=== PATIENT | male | born 1960 | race Caucasian/White ===

== ENCOUNTER 2021-04-21 06:45 | Outpatient (CLI) | payer BC | END 2021-04-21 06:46 | disposition home or self-care (01) | LOC: BICULT 06:45 | PROVIDERS: ATTEND Internal Medicine Gastroenterology | DX: K74.60 Unspecified cirrhosis of liver (principal) | CPT/HCPCS: 76705 ==

== ENCOUNTER 2022-07-26 07:20 | Outpatient (CLI) | payer BC | END 2022-07-26 07:21 | disposition home or self-care (01) | LOC: BICULT 07:20 | PROVIDERS: ATTEND Internal Medicine Gastroenterology | DX: K74.60 Unspecified cirrhosis of liver (principal) | CPT/HCPCS: 76705 ==

== ENCOUNTER 2022-11-16 09:06 | Outpatient (CLI) | payer BC | END 2022-11-16 09:07 | disposition home or self-care (01) | LOC: BICRAD 09:06 | PROVIDERS: ATTEND Nurse Practitioner Family | DX: M79.671 Pain in right foot (principal); M77.51 Other enthesopathy of right foot and ankle; M79.5 Residual foreign body in soft tissue ==

== ENCOUNTER 2023-05-17 12:09 | Outpatient (CLI) | payer BC | END 2023-05-17 12:10 | disposition home or self-care (01) | LOC: RAD 12:09 | PROVIDERS: ATTEND Nurse Practitioner Family | DX: M79.641 Pain in right hand (principal); M79.89 Other specified soft tissue disorders; M25.841 Other specified joint disorders, right hand; M25.741 Osteophyte, right hand; M18.11 Unilateral primary osteoarthritis of first carpometacarpal joint, right hand ==

== ENCOUNTER 2023-06-19 08:42 | Outpatient (CLI) | payer BC | END 2023-06-19 08:43 | disposition home or self-care (01) | LOC: BICMRI 08:42 | PROVIDERS: ATTEND Orthopaedic Surgery | DX: M75.121 Complete rotator cuff tear or rupture of right shoulder, not specified as traumatic (principal); S46.111A Strain of muscle, fascia and tendon of long head of biceps, right arm, initial encounter; S43.431A Superior glenoid labrum lesion of right shoulder, initial encounter; M75.81 Other shoulder lesions, right shoulder ==

== ENCOUNTER 2023-07-17 11:27 | Outpatient (CLI) | payer BC ==
[2023-07-17 10:51] LABS: #Eosinphils 0.3 10x3/uL (0.0-0.5); #Monocytes 0.5 10x3/uL (0.0-1.1); #Neutrophils 3.2 10x3/uL (1.5-8.4); %Basophils 0.7 % (0.0-2.0); %Eosinophils 5.4 % (0.0-6.0); %Monocytes 8.7 % (0.0-10.0); Hematocrit 40.2 % (38.8-50.0); Hemoglobin 13.6 g/dL (13.5-17.5); Mean Corpuscular HGB CONC 33.8 g/dL (32.0-36.0); Mean Corpuscular Hemoglobin 30.6 pg (27.0-33.0); Mean Corpuscular Volume 90.3 fl (81.2-95.1); Mean Platelet Volume 10.6 fl (7.4-10.4); Platelet Count 254 10x3/uL (150-450); RBC Distribution Width 12.2 % (11.5-14.5); Red Blood Cell (RBC) Count 4.45 10x6/uL (4.32-5.72); White Blood Cell (WBC) Count 5.4 10x3/uL (3.5-10.5)
[2023-07-17 11:32] LABS: Anion Gap 12 mmol/L (10-20); BUN (Urea Nitrogen) 16 mg/dL (8.4-25.7); Calc. Creatinine Clearance 0 mL/min (70-130); Calcium 8.9 mg/dL (7.8-10.44); Carbon Dioxide 25 mmol/L (23-31); Chloride 105 mmol/L (98-107); Estimated GFR 96; Glucose 104 mg/dL (80-115); PTT 31.9 sec (22.0-33.0); Prothrombin Time 10.7 sec (9.5-12.1); Sodium 138 mmol/L (136-145)
[2023-07-17 11:34] LABS: ALT (SGPT) 32 U/L (8-55); AST (SGOT) 35 U/L (5-34); Albumin 4.4 g/dL (3.4-4.8); Alkaline Phosphatase 68 U/L (40-110); Bilirubin, Direct 0.3 mg/dL (0.1-0.3); Bilirubin, Total 0.8 mg/dL (0.2-1.2); Protein, Total 7.1 g/dL (5.8-8.1)
== END 2023-07-17 11:28 | disposition home or self-care (01) ==
LOC: LABBT 11:27
PROVIDERS: ATTEND Orthopaedic Surgery
DX: Z01.818 Encounter for other preprocedural examination (principal); M75.101 Unspecified rotator cuff tear or rupture of right shoulder, not specified as traumatic
CPT/HCPCS: 80048; 80076; 85025; 85610; 85730; 93005; 93010

== ENCOUNTER 2023-08-11 06:20 | Day surgery (SDC) | payer BC ==
[2023-07-17 10:20] VITALS: BMI 28.5
[2023-08-11] MEDS ORDERED: CEFAZOLIN 2 GM VIAL ONE (06:33)
[2023-08-11] MEDS ORDERED: Vancomycin (BATCH) 1.5 GM/300 ML BAG ONE (06:33)
[2023-08-11] MEDS ORDERED: Sodium Chloride 0.9% 100 ML ONE (06:33)
[2023-08-11] MEDS ORDERED: fentaNYL 50 mcg/mL 1 mL Vial ONE ×2 (08:02→11:14)
[2023-08-11] MEDS ORDERED: Bupivacaine PF 0.5% 30 ML VIAL ONE (08:03)
[2023-08-11] MEDS ORDERED: Midazolam HCl 2 mg/2 ml Vial ONE (08:03)
[2023-08-11] MEDS ORDERED: fentaNYL PF 100 MCG/2 ML SYRINGE ONE (08:14)
[2023-08-11] MEDS ORDERED: Lidocaine 1% PF 5 ML VIAL ONE ×2 (08:14→09:21)
[2023-08-11] MEDS ORDERED: PROPOFOL 20 ML ONE (08:14)
[2023-08-11] MEDS ORDERED: Rocuronium Bromide 10 MG/ML (10ML VIAL) ONE ×2 (08:14→09:21)
[2023-08-11] MEDS ORDERED: PROPOFOL 200 MG/20 ML VIAL ONE (09:21)
[2023-08-11] MEDS ORDERED: Bupivacaine HCl 0.5%/Epinephrine 1:200,000/PF 30 ml Vial ONE (09:21)
[2023-08-11] MEDS ORDERED: Ondansetron PF 4 MG/2 ML Vial ONE ×2 (09:21→10:43)
[2023-08-11] MEDS ORDERED: ePHEDrine Sulfate 50 MG/10 ML VIAL ONE ×3 (09:21→09:45)
[2023-08-11] MEDS ORDERED: Promethazine HCl 25 MG/ML VIAL IM PRN (09:30)
[2023-08-11] MEDS ORDERED: Ketorolac Tromethamine 30 MG/ML VIAL IVP PRN (09:30)
[2023-08-11] MEDS ORDERED: Ropivacaine 0.2% 550 ML 550 ML NERVE BLCK SCH (09:30)
[2023-08-11] MEDS ORDERED: Zolpidem Tartrate 5 MG TAB PO PRN (09:30)
[2023-08-11] MEDS ORDERED: HYDROcodone/Acetaminophen 5/325 mg Tablet PO PRN ×2 (09:30)
[2023-08-11] MEDS ORDERED: traMADol HCl 50 MG TAB PO PRN ×2 (09:30)
[2023-08-11] MEDS ORDERED: Ondansetron PF 4 MG/2 ML Vial IVP PRN (09:30)
[2023-08-11] MEDS ORDERED: Albuterol HFA (OR) 200 PUFF INH ONE (10:43)
[2023-08-11] MEDS ORDERED: SUGAMMADEX SODIUM 200 MG/2 ML VIAL ONE (10:46)
== END 2023-08-11 13:50 | disposition home or self-care (01) ==
LOC: SDC 06:20
PROVIDERS: ATTEND Orthopaedic Surgery
PROC: 0RNJ0ZZ Release Right Shoulder Joint, Open Approach (ICD-10-PCS; principal; 2023-08-11)
DX: M75.41 Impingement syndrome of right shoulder (principal); M75.101 Unspecified rotator cuff tear or rupture of right shoulder, not specified as traumatic
CPT/HCPCS: A4306; C1713; J2250; J2405; J2704; J2795; J3010; J3370; J3490; S0020